=== PATIENT | male | born 1975 | race Caucasian/White ===

== ENCOUNTER 2024-09-13 19:47 | Inpatient (IN) | payer BC ==
[~2024-09-13] VITALS: Ht 177.8 cm; Wt 63.4 kg
[2024-09-13] MEDS ORDERED: Ipratropium Bromide INH 0.02% 0.5 mg/2.5ML Vial INH SCH (20:00)
[2024-09-13] MEDS ORDERED: Albuterol 2.5 MG/3 ML VIAL INH SCH (20:00)
[2024-09-13] MEDS ORDERED: MethylPREDNISolone Sod Succ 125 MG Vial IV ONE (20:00)
[2024-09-13 20:08] LABS: BASOPHILS ABSOLUTE AUTO 0.03 K/mm3 (0.00-0.23); BASOPHILS PERCENT AUTO 0 % (0-2); EOSINOPHILS ABSOLUTE AUTO 0.04 K/mm3 (0.00-0.68); EOSINOPHILS PERCENT AUTO 0 % (0-6); Hematocrit 50.4 % (37.0-53.0); Hemoglobin 16.8 g/dL (13.5-17.5); IMMATURE GRAN ABSOLUTE AUTO 0.03 K/mm3 (0.00-0.10); IMMATURE GRAN PERCENT AUTO 0 % (0-1); LYMPHOCYTES ABSOLUTE AUTO 1.51 K/mm3 (0.84-5.20); LYMPHOCYTES PERCENT AUTO 16 % (21-46); MONOCYTES PERCENT AUTO 5 % (4-13); Mean Corpuscular HGB 30.2 pg (26.0-34.0); Mean Corpuscular HGB Conc 33.3 g/dL (31.5-36.5); Mean Corpuscular Volume 91 fL (80-100); Mean Platelet Volume 9.2 fL (9.1-12.4); NEUTROPHILS ABSOLUTE AUTO 7.41 K/mm3 (1.96-9.15); NEUTROPHILS PERCENT AUTO 78 % (41-73); Platelet Count 232 K/mm3 (150-400); RDW Coefficient Variation 13.8 % (11.7-14.2); RDW Standard Deviation 46.5 fL (35.1-46.3); Red Blood Cell Count 5.56 M/mm3 (4.30-5.90); White Blood Cell Count 9.52 K/mm3 (4.00-11.30)
[2024-09-13 20:26] LABS: Albumin, Blood 3.7 g/dL (3.4-5.0); Albumin/Globulin Ratio 0.9 (0.8-1.8); Bilirubin, Total 0.3 mg/dL (0.1-1.0); Bun/Creatinine Ratio 15.1 (12.0-20.0); Calcium, Blood 10.2 mg/dL (8.5-10.1); Creatinine, Blood 0.93 mg/dL (0.60-1.20); Globulin, Blood 4.2 g/dL (2.2-4.0); Potassium, Blood 4.4 mmol/L (3.5-5.5); Total Protein, Blood 7.9 g/dL (6.4-8.2)
[2024-09-13] MEDS ORDERED: Magnesium Sulf 2 GM/Water 50ML 50 ML IV ONE (20:30)
[2024-09-13 20:36] LABS: Magnesium, Blood 2.1 mg/dL (1.6-2.4)
[2024-09-13 21:17] LABS: Influenza A, PCR NEGATIVE (NEGATIVE); Influenza B, PCR NEGATIVE (NEGATIVE); Resp Syncytial Virus, PCR NEGATIVE (NEGATIVE); SARS-Cov-2 (COVID-19) PCR, MMC NEGATIVE (NEGATIVE)
[2024-09-13] MEDS ORDERED: ALBU2.5V5 INH (21:33)
[2024-09-13] MEDS ORDERED: COMBIVENT RESPIM4 G1 INH (21:33)
[2024-09-13] MEDS ORDERED: Ondansetron HCl 2 MG / ML 2ML Vial IV PRN (22:40)
[2024-09-13] MEDS ORDERED: FLU VACC TS2024-25(6MOS UP)/PF 45 MCG/0.5 ML SYRINGE IM ONE (22:40)
[2024-09-13] MEDS ORDERED: Ipratropium/Albuterol SulF 2.5-0.5MG/3 ML Amp INH PRN (22:40)
[2024-09-13] MEDS ORDERED: Azithromycin 500 MG in NS 250 ML IV SCH (22:58)
[2024-09-13] MEDS ORDERED: Enoxaparin 40 MG/0.4 ML SYR SC SCH (23:00)
[2024-09-14] VITALS (15 sets, daily range): BP systolic 88–139; BP diastolic 60–86
[2024-09-14] MEDS ORDERED: LORazepam 2 MG/ML 1ML Injection IV ONE ×2 (03:15→11:15)
[2024-09-14 05:12] LABS: BASOPHILS ABSOLUTE AUTO 0.01 K/mm3 (0.00-0.23); BASOPHILS PERCENT AUTO 0 % (0-2); EOSINOPHILS PERCENT AUTO 0 % (0-6); Hematocrit 51.4 % (37.0-53.0); Hemoglobin 16.6 g/dL (13.5-17.5); IMMATURE GRAN ABSOLUTE AUTO 0.04 K/mm3 (0.00-0.10); IMMATURE GRAN PERCENT AUTO 1 % (0-1); LYMPHOCYTES ABSOLUTE AUTO 0.74 K/mm3 (0.84-5.20); LYMPHOCYTES PERCENT AUTO 8 % (21-46); MONOCYTES ABSOLUTE AUTO 0.08 K/mm3 (0.16-1.47); MONOCYTES PERCENT AUTO 1 % (4-13); Mean Corpuscular HGB 29.7 pg (26.0-34.0); Mean Corpuscular HGB Conc 32.3 g/dL (31.5-36.5); Mean Corpuscular Volume 92 fL (80-100); Mean Platelet Volume 10.1 fL (9.1-12.4); NEUTROPHILS ABSOLUTE AUTO 7.99 K/mm3 (1.96-9.15); NEUTROPHILS PERCENT AUTO 90 % (41-73); Platelet Count 228 K/mm3 (150-400); RDW Coefficient Variation 14.2 % (11.7-14.2); RDW Standard Deviation 47.8 fL (35.1-46.3); Red Blood Cell Count 5.58 M/mm3 (4.30-5.90); White Blood Cell Count 8.86 K/mm3 (4.00-11.30)
[2024-09-14 06:04] LABS: Albumin, Blood 3.6 g/dL (3.4-5.0); Albumin/Globulin Ratio 0.8 (0.8-1.8); Bilirubin, Total 0.3 mg/dL (0.1-1.0); Bun/Creatinine Ratio 20.4 (12.0-20.0); Calcium, Blood 9.4 mg/dL (8.5-10.1); Creatinine, Blood 0.79 mg/dL (0.60-1.20); Globulin, Blood 4.4 g/dL (2.2-4.0)
[2024-09-14 06:05] LABS: Potassium, Blood 6.4 mmol/L (3.5-5.5)
[2024-09-14 06:32] LABS: Bun/Creatinine Ratio 19.4 (12.0-20.0); Calcium, Blood 9.2 mg/dL (8.5-10.1); Creatinine, Blood 0.77 mg/dL (0.60-1.20); Potassium, Blood 5.3 mmol/L (3.5-5.5)
[2024-09-14] MEDS ORDERED: CefTRIAXone Sodium 2,000 MG in NS 100 ML IV ONE (06:40)
[2024-09-14] MEDS ORDERED: LORazepam 2 MG/ML 1ML Injection IV PRN (10:20)
[2024-09-14] MEDS ORDERED: Albuterol 2.5 MG/3 ML VIAL INH SCH (11:30)
[2024-09-14] MEDS ORDERED: Albuterol 2.5 MG/3 ML VIAL INH PRN (11:40)
[2024-09-14] MEDS ORDERED: Ipratropium/Albuterol SulF 2.5-0.5MG/3 ML Amp INH SCH (11:40)
[2024-09-14] MEDS ORDERED: Mag Sulfate 1 GM/D5% 100ML 100 ML IV ONE (12:00)
[2024-09-14 12:30] LABS: Base Excess Venous 1.9 mmol/L; Bicarbonate Venous 24.2 mmol/L (24.0-30.0); PCO2 Venous 65.4 mmHg (38-42)
--- NOTE | 2024-09-14 12:30 | NUR ---
[place] of care: Received patient from ED on BiPAP 26/07, 40%. He is tachypneic in the mid to high 30s but oxygen saturations are maintaining in upper 90s. Wheezes throughout both lungs on auscultation. Congested, non-productive cough. Does not complain of any pain or discomfort. Drowsy but oriented & follows all commands. Vital signs stable. Updated patient & on plan of care. Notified MD of VBG results & current BiPAP settings.
[2024-09-14 12:31] LABS: pH Blood Venous 7.26 (7.34-7.37)
[2024-09-14] MEDS ORDERED: MethylPREDNISolone Sod Succ 125 MG Vial IV SCH ×2 (14:00)
[2024-09-14] MEDS ORDERED: NS 1,000 ML IV SCH (14:20)
[2024-09-14 15:19] LABS: Base Excess Venous 1.6 mmol/L; Bicarbonate Venous 24.7 mmol/L (24.0-30.0); PCO2 Venous 50.2 mmHg (38-42); pH Blood Venous 7.34 (7.34-7.37)
--- NOTE | 2024-09-14 16:59 | NUR ---
End of shift summary: Remains on BiPAP 18/, 30%. RR has decreased somewhat to 25-30, still with some wheezes bilaterally. Was able to tolerate a short break off the mask for some water. Otherwise intact & stable, NSR in the 90s with SBP 110-130. No complaints of pain. Received one dose of 1mg ativan along with his breathing treatment this afternoon. Will continue with plan of care.
--- NOTE | 2024-09-14 17:32 | NUR ---
MD update: Patient now confused & making delirious statements. Spoke with Dr. Rajan. See orders for discontinuation of Ativan, initiation of Precedex, & obtain VBG.
[2024-09-14] MEDS ORDERED: dexmedeTOMIDine 100 ML IV SCH (17:45)
[2024-09-14 18:39] LABS: Base Excess Venous 2.3 mmol/L; PCO2 Venous 47.8 mmHg (38-42); pH Blood Venous 7.37 (7.34-7.37)
[2024-09-15] VITALS (14 sets, daily range): BP systolic 95–157; BP diastolic 65–92
--- NOTE | 2024-09-15 00:22 | NUR ---
ASSUMPTION OF CARE: THIS RN ASSUMED CARE AT APPROXIMATELY 1905. PT LAYING IN BED WITH BIPAP ON. PT TOLERATING MASK. PT DENIES ANY PAIN OR DISCOMFORT. PT PRECEDEX RUNNING AT 0.4 AT START OF SHIFT. WILL CONTINUE PLAN OF CARE.
[2024-09-15 03:55] LABS: BASOPHILS ABSOLUTE AUTO 0.01 K/mm3 (0.00-0.23); BASOPHILS PERCENT AUTO 0 % (0-2); EOSINOPHILS PERCENT AUTO 0 % (0-6); Hematocrit 46.7 % (37.0-53.0); IMMATURE GRAN ABSOLUTE AUTO 0.07 K/mm3 (0.00-0.10); IMMATURE GRAN PERCENT AUTO 1 % (0-1); LYMPHOCYTES ABSOLUTE AUTO 1.09 K/mm3 (0.84-5.20); LYMPHOCYTES PERCENT AUTO 8 % (21-46); MONOCYTES ABSOLUTE AUTO 0.29 K/mm3 (0.16-1.47); MONOCYTES PERCENT AUTO 2 % (4-13); Mean Corpuscular HGB 30.2 pg (26.0-34.0); Mean Corpuscular HGB Conc 32.1 g/dL (31.5-36.5); Mean Corpuscular Volume 94 fL (80-100); Mean Platelet Volume 9.7 fL (9.1-12.4); NEUTROPHILS ABSOLUTE AUTO 12.18 K/mm3 (1.96-9.15); NEUTROPHILS PERCENT AUTO 89 % (41-73); Platelet Count 203 K/mm3 (150-400); RDW Coefficient Variation 14.4 % (11.7-14.2); RDW Standard Deviation 49.7 fL (35.1-46.3); Red Blood Cell Count 4.97 M/mm3 (4.30-5.90); White Blood Cell Count 13.64 K/mm3 (4.00-11.30)
[2024-09-15 04:28] LABS: Albumin, Blood 3.2 g/dL (3.4-5.0); Albumin/Globulin Ratio 0.9 (0.8-1.8); Bilirubin, Total 0.3 mg/dL (0.1-1.0); Bun/Creatinine Ratio 36.8 (12.0-20.0); Calcium, Blood 9.1 mg/dL (8.5-10.1); Creatinine, Blood 0.65 mg/dL (0.60-1.20); Globulin, Blood 3.6 g/dL (2.2-4.0); Potassium, Blood 4.7 mmol/L (3.5-5.5); Total Protein, Blood 6.8 g/dL (6.4-8.2)
--- NOTE | 2024-09-15 04:59 | NUR ---
SHIFT SUMMARY PT REMAINED ON BIPAP THROUGHOUT THE NIGHT EXCEPT FOR A SIP OF WATER. PT TOLERATED BEING OFF BIPAP DURING THAT TIME ON RA WITH O2 SAT ABOVE 88%. PT HAD NO ACUTE EVENTS OVERNIGHT. WILL CONTINUE PLAN OF CARE.
--- NOTE | 2024-09-15 07:57 | NUR ---
AM NOTE... ASSUMED CARE OF PT AT 0700, PT IS A&Ox4. PT IS ON THE BIPAP AT 16/10 AND 30% WITH O2 SATS>90% L/S ARE DIM T/O WITH EXP WHEEZES IN THE UPPER LOBES. PT IS ON PRECEDEX AT 0.2MCG/KG TO HELP WITH BIPAP COMPLIANCE. THE PT WAS TAKEN OFF OF BIPAP AND PLACED ON RA WITH O2 SATS>88%. THE PRECEDEX DRIP WAS STOPPED AT THIS TIME. HE IS IN SR IN THE 60'S-70'S BP IS STABLE AT 113/74. NO EDEMA NOTED ON THIS ASSESSMENT. BT PRESENT AND NORMOACTIVE, ABD IS SOFT AND NONTENDER TO PALPATION. PT WAS ABLE TO USE THE URINAL INDEPENDENTLY. ONCE THE PT WAS TAKEN OFF OF THE BIPAP HE WAS RELUCTANT TO USE O2, PT DOES WELL WITH PURSED LIP BREATHING AND BREATH RECOVERY. WILL CONTINUE TO MONITOR.
[2024-09-15] MEDS ORDERED: CefTRIAXone Sodium 1,000 MG in NS 100 ML IV SCH (08:00)
[2024-09-15] MEDS ORDERED: Nicotine 21 MG PATCH TOP SCH (09:00)
--- NOTE | 2024-09-15 18:18 | NUR ---
SHIFT SUMMARY... NO ACUTE NEGATIVE CHANGES NOTED THIS SHIFT. PT HAS BEEN ON RA MOST OF THE START OF THIS SHIFT BUT THIS AFTERNOON NEEDED TO BE PLACED ON 2-4L NC TO KEEP O2 SATS>88% L/S CONTINUE TO BE DIM WITH EXP WHEEZES, BUT WHEEZES SEEM TO BE SLIGHTLY BETTER THIS AFTERNOON. PT HAS BEEN UP TO THE TOILET 3 TIMES THIS SHIFT AND HAD 2BMS THIS SHIFT PER THE PT. PT HAS BEEN UP TO THE CHAIR SEVERAL TIMES INDEPENDENTLY. PT'S VS HAVE BEEN STABLE T/O THIS SHIFT. WILL CONTINUE TO MONITOR UNTIL REPORT IS GIVEN TO ONCOMING RN
--- NOTE | 2024-09-15 20:32 | NUR ---
ARRIVAL PT IS A NEW TRANSFER FROM ICU. ARRIVED VIA WHEELCHAIR. A/OX4, INDEPENDENT BUT REPORTS DIFFUSE WEAKNESS. PT REPORTING INCREASED SOB WITH AMBULATION AND TALKING. PT IS CURRENTLY ON 4L VIA NC, CONTINUOUS BIOX IN PLACE. SPO2 NOTED TO BE 88%-90%. PT DENIES ANY SKIN ISSUES AND IS NOT FEELING WELL ENOUGH FOR A SKIN CHECK AT THIS TIME. DENIES ABD ISSUES, N/V. ENDORSES PASSING FLATTUS AND VOIDING W/O DIFFUCLTY. CALL PLACED TO RESPIRATORY THERAPY FOR BREATHING TX AND BIPAP. THE PATIENT IS CURRENTLY DANGLING AT BEDSIDE, CALL LIGHT IN REACH
--- NOTE | 2024-09-15 20:53 | NUR ---
ASSUMPTION OF CARE/TRANSFER TO SURGICAL FLOOR ASSUMED CARE OF PATIENT AT 1900, BEDSIDE SHIFT REPORT RECEIVED FROM LAVERN RN. PT RESTING IN BED, ALERT AND ORIENTED. PT ANSWERS QUESTIONS APPROPRIATELY, FOLLOWS DIRECTION WEHN PROMPTED AND IS ABLE TO MAKE HIS NEEDS KNOWN. PT MOVES EXTREMITIES EQUALLY BILATERALLY. PT MED NO TELE STATUS, PT DENIES CP/PRESSURE, MAP >65. PT ON 4LPM VIA NC, OXYGEN SATURATION >90%. PT STATES THAT HE FEELS LIKE ITS DIFFICULT TO BREATHE AND STATES HE HAS SOB WITH EXERTION. ABDOMEN SOFT. BOWEL TONES ACTIVE THROUGHOUT. PT AMBULATES IN THE ROOM INDEPENDENTLY. REPORT CALLED TO SURGICAL FLOOR NURSE. PT TRANSFERED TO SURGICAL FLOOR VIA WHEELCHAIR AT APPROXIMATELY 2015. PT TRANSFERED WITH ALL PT BELONGINGS. PT STAND AND PIVOT FROM WHEELCHAIR TO BED. VITAL SIGNS REMAINED STABLE, MENTATION/ORIENTATION REMAINED STABLE.
[2024-09-15] MEDS ORDERED: MethylPREDNISolone Sod Succ 125 MG Vial IV SCH (21:00)
--- NOTE | 2024-09-15 21:52 | NUR ---
OXYGENATION UPDATE PT AMBULATED TO THE BATHROOM INDEPENDENTLY, THIS RN STOOD BY TO ASSESS O2 SATURATIONS. SPO2 NOTED TO DROP TO 87%, O2 FLOW WAS TURNED UP TO 5L. PT THEN USED THE BATHROOM AND RETURNED TO BED. TAKING REST BREAKS HE WALKS. AFTER GETTING BACK INTO BED AND RECOVERING, THE PT SPO2 WAS 93% ON 5L. PT REPORTS ONGOING DIFFUSE WEAKNESS, SOB, AND FATIGUE.
[2024-09-16 04:05] VITALS: BP 124/85
--- NOTE | 2024-09-16 04:09 | NUR ---
SHIFT SUMMRY VSS. PT HAS SLEPT ON AND OFF T/O THE NIGHT. PT HAS BEEN RECIEVING BREATHING TREATMENTS T/O THE NIGHT. HE REPORTS SLIGHT IMPROVEMENT FROM THEM, BUT REPORTS THEY ALSO MAKE HIM FEEL SHAKEY AND ANXIOUS. SPO2 PROBE REMAINS IN PLACE, SATS DROP TO MID 80'S WHILE AMBULATING, BUT RETURN TO LOW 90'S ONCE THE PT IS RESTING. SATS >95% NOTED WHEN THE PATIENT IS SLEEPING. DIMINISHED LUNG SOUNDS T/O, EXPIRATORY WHEEZES NOTED IN MID AND LOWER BASES. PT HAS BEEN ABLE TO AMBULATE INDEP IN THE ROOM, VOIDING W/O DIFFICULTY. TOLLERATING PO INTAKE W/O N/V. OVERALL, NO ACUTE EVENTS NOTED. PLAN TO CONTINUE IV ABX AND RESPIRATORY CARE. THE PATIENT IS CURRENTLY RESTING, IN NO DISTRESS, CALL LIGHT IN REACH
[2024-09-16 06:22] LABS: BASOPHILS ABSOLUTE AUTO 0.03 K/mm3 (0.00-0.23); BASOPHILS PERCENT AUTO 0 % (0-2); EOSINOPHILS PERCENT AUTO 0 % (0-6); Hematocrit 49.6 % (37.0-53.0); Hemoglobin 15.6 g/dL (13.5-17.5); IMMATURE GRAN ABSOLUTE AUTO 0.11 K/mm3 (0.00-0.10); IMMATURE GRAN PERCENT AUTO 1 % (0-1); LYMPHOCYTES ABSOLUTE AUTO 1.32 K/mm3 (0.84-5.20); LYMPHOCYTES PERCENT AUTO 7 % (21-46); MONOCYTES ABSOLUTE AUTO 0.73 K/mm3 (0.16-1.47); MONOCYTES PERCENT AUTO 4 % (4-13); Mean Corpuscular HGB 29.8 pg (26.0-34.0); Mean Corpuscular HGB Conc 31.5 g/dL (31.5-36.5); Mean Corpuscular Volume 95 fL (80-100); Mean Platelet Volume 9.6 fL (9.1-12.4); NEUTROPHILS ABSOLUTE AUTO 17.82 K/mm3 (1.96-9.15); NEUTROPHILS PERCENT AUTO 89 % (41-73); Platelet Count 228 K/mm3 (150-400); RDW Standard Deviation 49.1 fL (35.1-46.3); Red Blood Cell Count 5.23 M/mm3 (4.30-5.90); White Blood Cell Count 20.01 K/mm3 (4.00-11.30)
[2024-09-16 06:45] LABS: Bun/Creatinine Ratio 31.5 (12.0-20.0); Creatinine, Blood 0.64 mg/dL (0.60-1.20); Potassium, Blood 5.2 mmol/L (3.5-5.5)
[2024-09-16 07:16] VITALS: BP 142/95
[2024-09-16 07:17] VITALS: BP 136/86
[2024-09-16] MEDS ORDERED: HyDROXyzine HCl 25 MG Tab PO PRN (12:05)
[2024-09-16 14:26] VITALS: BP 133/87
[2024-09-16] MEDS ORDERED: Albuterol HFA200 ACT/6.7 GM INH INH PRN (15:40)
--- NOTE | 2024-09-16 17:19 | NUR ---
SHIFT SUMMARY PT REPORTS FEELING MUCH BETTER TODAY, HAS WEANED TO 3L NASAL CANULA. STILL DYSPNIC WITH AMBULATION BUT RECOVERS QUICKLY. TOLERATING DIET WELL SATS HAVE REMAINED 92% OR HIGHER DURING SHIFT, EVEN DURING AMBULATION. CALL APPROPRIATLY, DENIES FURTHER NEEDS.
[2024-09-16 19:10] VITALS: BP 130/88
--- NOTE | 2024-09-17 04:01 | NUR ---
SHIFT SUMMARY PATIENT WAS ABLE TO SLEEP IN LONG INTERVALS, INTERRUPTED BY COUGHING EPISODES. I GAVE HIM PRN DOSE OF ATARAX, TO HELP HIM SLEEP.
[2024-09-17 05:10] LABS: BASOPHILS ABSOLUTE AUTO 0.03 K/mm3 (0.00-0.23); BASOPHILS PERCENT AUTO 0 % (0-2); EOSINOPHILS PERCENT AUTO 0 % (0-6); Hematocrit 46.7 % (37.0-53.0); Hemoglobin 15.2 g/dL (13.5-17.5); IMMATURE GRAN ABSOLUTE AUTO 0.09 K/mm3 (0.00-0.10); IMMATURE GRAN PERCENT AUTO 1 % (0-1); LYMPHOCYTES ABSOLUTE AUTO 1.12 K/mm3 (0.84-5.20); LYMPHOCYTES PERCENT AUTO 8 % (21-46); MONOCYTES PERCENT AUTO 3 % (4-13); Mean Corpuscular HGB 29.8 pg (26.0-34.0); Mean Corpuscular HGB Conc 32.5 g/dL (31.5-36.5); Mean Corpuscular Volume 92 fL (80-100); Mean Platelet Volume 9.8 fL (9.1-12.4); NEUTROPHILS ABSOLUTE AUTO 11.84 K/mm3 (1.96-9.15); NEUTROPHILS PERCENT AUTO 88 % (41-73); Platelet Count 230 K/mm3 (150-400); RDW Coefficient Variation 13.8 % (11.7-14.2); RDW Standard Deviation 47.1 fL (35.1-46.3); White Blood Cell Count 13.48 K/mm3 (4.00-11.30)
[2024-09-17 05:49] VITALS: BP 151/89
[2024-09-17 05:56] LABS: Bun/Creatinine Ratio 27.9 (12.0-20.0); Creatinine, Blood 0.61 mg/dL (0.60-1.20); Potassium, Blood 4.6 mmol/L (3.5-5.5)
[2024-09-17 07:03] VITALS: BP 130/80
--- NOTE | 2024-09-17 09:54 | NUR ---
MORNING NOTE THIS RN ASSUMED CARE AT APPROX 0715. PATIENT ALERT AND ORIENTED X4. INDEPENDENT IN ROOM. COMMUNICATES NEEDS EFFECTIVELY. VSS. TITRATED FROM 2L VIA NC TO ROOM AIR, SATs 88-90%. DENIES EPISODES OF INCREASED SHORTNESS OF BREATH. EAGER TO DC HOME - PER MD, POSSIBLE DC IN AFTERNOON. DISCUSSED NEED FOR HOME O2 EVAL. TOLERATING PO INTAKE. DENIES PAIN. CALL LIGHT IN REACH. FAMILY AT BEDSIDE.
[2024-09-17] MEDS ORDERED: Mometasone/Formoterol MDI 200/5 mcg 13 GM INH SCH (10:40)
[2024-09-17] MEDS ORDERED: CEFP200 PO (13:20)
[2024-09-17] MEDS ORDERED: FLUTICASONE-SA1 EAC1 INH (13:20)
[2024-09-17] MEDS ORDERED: HYDHCL25 PO (13:21)
[2024-09-17] MEDS ORDERED: NICO21TP TOP (13:22)
[2024-09-17] MEDS ORDERED: Prednisone10 MG PO (13:23)
--- NOTE | 2024-09-17 14:05 | NUR ---
DISCHARGE NOTE NO ACUTE CHANGES SINCE PREVIOUS DOCUMENTATION. HOME O2 EVAL COMPLETED - PATIENT TOLERATING ROOM AIR AT REST BUT DOES REQUIRE 2L VIA NC WITH ACTIVITY. PULMONARY FUNCTION TEST TO BE PERFORMED OUTPATIENT. DC HOME ORDERED. HOME OXYGEN AT BEDSIDE FOR DC. MD DEAL AT BEDSIDE PRIOR TO DC TO PROVIDE ADDITIONAL DC EDUCATION. DC EDUCATION PROVIDED - BOTH PATIENT AND SIGNIFICANT OTHER STATE UNDERSTANDING. IVs REMOVED. PERSONAL BELONGINGS WITH PATIENT. PATIENT TRANSFERRED TO PERSONAL VEHICLE VIA WHEELCHAIR AT APPROX 1355.
[2024-09-18] MEDS ORDERED: PredniSONE 20 MG Tab PO SCH (09:00)
[2024-09-18] MEDS ORDERED: Cefpodoxime Proxetil 200 MG Tab PO SCH (09:00)
[2024-09-19] MEDS ORDERED: PredniSONE 20 MG Tab PO SCH (09:00)
== END 2024-09-17 14:00 | disposition home or self-care (01) | DRG 189 ==
LOC: ER 19:47 → ERHOLD 22:55 → SURS 22:55 → ICUE 09-14 11:55 → SURS 09-15 20:24
PROVIDERS: Family Medicine; Hospitalist; Physician Assistant; Student in an Organized Health Care Education/Training Program; ADMIT Internal Medicine
PROC: 5A09457 Assistance with Respiratory Ventilation, 24-96 Consecutive Hours, Continuous Positive Airway Pressure (ICD-10-PCS; principal; 2024-09-13)
DX: J96.01 Acute respiratory failure with hypoxia (principal); J44.1 Chronic obstructive pulmonary disease with (acute) exacerbation; Z99.81 Dependence on supplemental oxygen; J96.02 Acute respiratory failure with hypercapnia; F41.0 Panic disorder [episodic paroxysmal anxiety]; F17.210 Nicotine dependence, cigarettes, uncomplicated
CPT/HCPCS: 0241U; 36415; 36416; 71045; 80048; 80053; 82803; 83605; 83735; 83880; 84145; 84484; 85025; 85379; 87040; 94640; 94644; 94660; 94664; 94761; 94762; 96365; 96375; 99291-25; A9270; J0456; J0696; J1650; J2060; J2919; J3475; J7030; J7050